=== PATIENT | male | born 2000 | race Caucasian/White ===

== ENCOUNTER 2022-02-08 12:02 | Emergency (ER) | payer OTHER, SELFPAY ==
[2022-02-08 12:28] VITALS: BP 110/70; PULSE 81; RESP 16; TEMP 36; O2SAT 98
--- NOTE | 2022-02-08 12:40 | ED.SKABFB ---
HPI - Skin/Abscess/Foreign Bdy General Chief complaint: Skin/Abscess/Foreign Body Stated complaint: HIVES Time Seen by Provider: 02/08/22 12:52 Source: patient and RN notes reviewed Mode of arrival: ambulatory Limitations: no limitations History of Present Illness HPI narrative: 21-year-old male presents to the [facility] with complaints hives to his abdomen, upper back and arms. Denies any new creams or ointments lotions or detergents. Denies any new clothes. States he started taking minocycline. Has taken Benadryl Currently blood sugar 104 Related Data Home Medications Medication Instructions Recorded Confirmed insulin aspart U-100 100 unit/mL See Rx Instructions .Route .COMPLEX 02/08/22 02/08/22 subcutaneous solution (Novolog U-100 Insulin aspart) minocycline 100 mg capsule 100 mg PO DAILY 02/08/22 02/08/22 Allergies Allergy/AdvReac Type Severity Reaction Status Date / Time No Known Allergies Allergy Verified 02/08/22 12:25 Review of Systems Review of Systems: All systems reviewed & are unremarkable except as noted in HPI and below Constitutional: Constitutional: Reports no additional constitutional complaints, Denies chills and Denies fever(s) Eyes: Eyes: Reports no additional eye complaints ENT: Reports system reviewed and no additional complaints, except as documented Cardiovascular: Cardiovascular: Reports no additional cardiovascular complaints Respiratory: Respiratory: Reports no additional respiratory complaints Gastrointestinal: Gastrointestinal: Reports no additional gastrointestinal complaints Musculoskeletal: Musculoskeletal: Reports no additional musculoskeletal complaints Integumentary/Breasts: Skin/Breast: Reports as per HPI and Reports pruritus Neurologic: Reports system reviewed and no additional complaints, except as documented Psychiatric: Psychiatric: Reports no additional psychiatric complaints Allergic/Immunologic: Allergic/Immunologic: Reports no additional allergic/immunologic complaints PMFSH Comments At the time of my signature, I reviewed and agree with the nursing past medical, surgical, social, and family history. There is no relevant family history pertinent to the patient complaint. Exam Const: General: healthy appearing, no acute distress, alert and well nourished Nutritional Appearance: well nourished Orientation/consciousness: patient oriented x3 Limitations: no limitations HENMT: Head: normal to inspection Ears: external ears normal Eyes: General: appearance normal, both eyes and all related structures Pupils: Equal, round and reactive pupils present Neck: Neck: normal visual inspection, no lymphadenopathy and no meningeal signs Chest: Chest palpation & inspection: normal inspection of the chest Resp: Effort & Inspection: normal respiratory effort and no use of accessory muscles Auscultation: clear to auscultation bilaterally, no crackles, no rales, no rhonchi and no wheezes Cardio: Rate: regular rate Rhythm: regular rhythm Skin: General skin exam: normal color Wounds: no wounds Other: Red raised hives to the upper back, lower abdomen, lower back and bilateral arms patient describes as very itchy Neuro: General: patient oriented x3, moves all extremities, no meningeal signs and no focal motor deficits Cranial nerves: Yes Equal, round and reactive pupils present Speech: normal speech Gait exam (Neuro): Normal gait present Extrem: General: normal to inspection, full ROM and capillary refill normal Psych: Appearance: grossly normal and well kempt Mental Status: mental status grossly normal Affect: normal affect Attitude: cooperative Thought content: Yes Normal thought content present Course Course Emergency Course: Discharge instructions reviewed with patient, as well as provided in writing per nursing staff. The instructions also include specific and strict return/GO TO THE ER as well as f/u information. All questions have been
== END 2022-02-08 13:13 | disposition home or self-care (01) ==
PROVIDERS: Emergency Provider Nurse Practitioner
DX: L50.9 Urticaria, unspecified (principal); E10.9 Type 1 diabetes mellitus without complications
CPT/HCPCS: 99213; G0463

== ENCOUNTER 2023-06-15 14:28 | Observation (INO) | payer OTHER, SELFPAY ==
[2023-06-15] VITALS (8 sets, daily range): BP systolic 115–147; BP diastolic 58–88; PULSE 65–89; RESP 18–23; TEMP 36.3–37; O2SAT 96–100; BMI 24.6
--- NOTE | ~2023-06-15 | XR_ITS ---
EXAMINATION: XR chest 1V portable Exam Date/Time: 06/15/2023 22:20 [employer]ER HISTORY: leukocytosis, DKA Comparison: None. RESULT: Lines, tubes, and devices: None. Lungs and pleura: Clear. Cardiomediastinal silhouette: Normal. Other: No acute osseous or upper abdominal finding. IMPRESSION: No acute cardiopulmonary process. Reviewed, dictated and finalized at location K. [employer]
[2023-06-15 14:48] LABS: Glucose Point of Care 318 mg/dl (65-105)
--- NOTE | 2023-06-15 14:51 | ED.GENADULT ---
HPI - General Adult General Chief complaint: Recheck/Abnormal Lab/Rx Stated complaint: blood sugar is high Time Seen by Provider: 06/15/23 14:43 History of Present Illness HPI narrative: 22-year-old male with history of type 1 diabetes presenting to the emergency department for evaluation of nausea vomiting and hyperglycemia. Patient states he changed his insulin pump a few days ago and states since then his blood sugars have been running high and even after giving himself boluses he has been able to get the blood sugar control. Patient states last night or this morning he began developing nausea vomiting increased body aches. Patient was initially diagnosed with diabetes and September of 2018 and that was his last time he was in DKA. Related Data Home Medications Medication Instructions Recorded Confirmed insulin aspart U-100 100 unit/mL See Rx Instructions .Route .COMPLEX 02/08/22 06/15/23 subcutaneous solution (Novolog U-100 Insulin aspart) minoxidil 2.5 mg tablet 1.25 mg DAILY 06/15/23 06/15/23 sertraline 25 mg tablet 25 mg DAILY 06/15/23 06/15/23 Allergies Allergy/AdvReac Type Severity Reaction Status Date / Time No Known Allergies Allergy Verified 06/15/23 15:26 Review of Systems Review of Systems: All systems reviewed & are unremarkable except as noted in HPI and below PMFSH Social History Social History Smoking status: Current some day smoker Tobacco type: e-cigarettes/vaping Alcohol intake: current Drinks per week: 2 Substance use: current Substance use type: marijuana Other substance usage details: gummies Do You Feel Safe in your Home?: Yes Lack of Transportation: No Lack of Food: Never True Current Housing: I Have Housing Concerned About Future Housing: No Difficulty Paying Gas/Electric Bills: No Difficulty Paying for Meds: No Currently Unemployed: No Education: Trade/Vocational Certificate Difficulty w/ Childcare or Family Care: No Spiritual care concerns: No Exam Narrative: APPEARANCE: Ill-appearing HEAD: normocephalic, atraumatic. EYES: PERRLA/EOMI, conjunctivae clear. NOSE: Normal no drainage EARS:TMS clear with good light reflex. THROAT: Pharynx clear, no exudate. NECK: Supple. No adenopathy, no masses. RESPIRATORY: Airway patent, respirations nonlabored. Clear to auscultation bilaterally, no rales, rhonchi, wheezing. CARDIOVASCULAR: Tachycardia ABDOMINAL: Soft, nontender, nondistended, normal bowel sounds MUSCULOSKELETAL: Moves all extremities. Strength/ROM intact, No edema, No calf tenderness. NEURO: Alert. Cranial nerves II through XII intact. Grossly intact SKIN: Warm, dry. Normal Color Course Course Emergency Course: Patient was admitted to the ICU for treatment of DKA Vital Signs Vital signs: Vital Signs Temperature 97.3 F L 06/15/23 14:28 Pulse Rate 87 06/15/23 14:28 Respiratory Rate 18 06/15/23 14:28 Blood Pressure 147/88 H 06/15/23 14:28 Pulse Oximetry 100 06/15/23 14:28 Temperature 98.6 F 06/15/23 18:00 Pulse Rate 84 06/15/23 18:00 Respiratory Rate 20 06/15/23 18:00 Blood Pressure 130/82 06/15/23 18:00 Pulse Oximetry 98 06/15/23 18:00 Oxygen Delivery Room Air 06/15/23 18:31 Medical Decision Making [facility] Narrative Medical decision making narrative: 22-year-old male presenting emergency department for evaluation nausea vomiting secondary to diabetic ketoacidosis. Patient's symptoms started after he had changed his insulin pump 2-3 days ago. Patient denies any infectious symptoms. Patient was afebrile but did have a leukocytosis of 16.2. Patient is stable hemoglobin of 16.1. Patient did have an anion gap of 28 with a glucose of 310. Patient was hyperglycemic upon arrival to the emergency department with a beta hydroxybutyrate of 7.5 and a pH on the VBG of 7.287. Patient was treated with IV fluids, insulin bolus and was started on insulin drip for diabetic ketoacidosis. Diana
[2023-06-15] MEDS: SODIUM CHLORIDE 0.9% IV 1,000 ML 999 ML IV CONT ×2 (15:06→15:07)
[2023-06-15] MEDS: INSULIN HUMAN REGULAR (*BKC) 100 UNITS/ML 8 UNITS IV PUSH (15:07)
[2023-06-15] MEDS: ONDANSETRON INJ 4 MG/2 ML VIAL IV PUSH ×2 (15:07→19:29)
[2023-06-15 15:08] LABS: Basophils Percent Auto 0.2 % (0.2-1.2); Hematocrit 45.8 % (42.0-52.0); Hemoglobin 16.1 g/dL (14.0-18.0); Immature Granulocyte Absolute 0.06 K/mm3 (0.00-0.031); Immature Granulocyte Percent A 0.4 % (0-0.5); Lymphocytes Absolute Auto 0.88 K/mm3 (0.9-3.2); Lymphocytes Percent Auto 5.4 % (18.3-44.2); Mean Corpuscular HGB Conc 35.2 g/dl (32-36); Mean Corpuscular Hemoglobin 31.7 pg (26-34); Mean Corpuscular Volume 90.2 fl (80-100); Mean Platelet Volume 11.2 fl (7.4-10.4); Monocytes Absolute Auto 0.4 K/mm3 (0.1-0.6); Monocytes Percent Auto 2.7 % (2.6-8.5); Neutrophils Absolute Auto 14.8 K/mm3 (1.3-6.7); Neutrophils Percent Auto 91.3 % (45.5-73.1); Platelet Count Result 276 k/mm3 (150-375); Red Blood Count 5.08 M/mm3 (4.6-6.20); Red Cell Distribution Width 12.1 % (11.5-14.5); White Blood Count 16.2 K/mm3 (4.5-10.0)
[2023-06-15 15:18] LABS: Alanine Aminotransferase 21 U/L (6-50); Albumin Level 5.3 g/dL (3.5-5.1); Alkaline Phosphatase 137 U/L (38-126); Anion Gap 28 mmol/L (8-16); Aspartate Amino Transferase 24 U/L (17-59); Bilirubin,Total 1.4 mg/dL (0.2-1.3); Blood Urea Nitrogen 16 mg/dL (9-20); Calcium 10.3 mg/dL (8.4-10.2); Carbon Dioxide 7 mmol/L (22-30); Chloride 100 mmol/L (98-107); Estimated CRCL calculation 116 ml/min; Estimated Glomerular Filt Rate > 60; Glucose 310 mg/dL (65-110); Potassium 3.8 mmol/L (3.4-5.0); Sodium 135 mmol/L (137-145)
[2023-06-15 15:23] LABS: Fractional Inspired Oxygen 21 %; PO2 VBG 43.9 mmHg (35.0-45.0); pH VBG 7.287 (7.300-7.400)
[2023-06-15 15:24] LABS: Device ROOM AIR; PCO2 VBG 23.6 mmHg (42.0-48.0)
[2023-06-15 15:26] LABS: Phosphorus 2.9 mg/dL (2.5-4.5)
[2023-06-15] MEDS: METOCLOPRAMIDE HCL INJ 10 MG/2 ML VIAL IV PUSH (15:27)
[2023-06-15 15:40] LABS: Beta-Hydroxybutyrate/Acetoacetate 7.58 mmol/L (0.02-0.27)
[2023-06-15] MEDS: INSULIN HUMAN REGULAR (*BKC) 100 UNITS in SODIUM CHLORIDE 0.9% IV 99 ML 8 UNITS IV CONT (15:56)
[2023-06-15 16:00] LABS: Glucose Point of Care 220 mg/dl (65-105)
[2023-06-15] MEDS: KCL 20 MEQ/SW 100 ML 100 ML 50 MEQ IVPB (16:14)
[2023-06-15] MEDS: DEXTROSE 5%/0.45% SOD CHL 1,000 ML 100 ML IV CONT (16:15)
[2023-06-15 16:46] LABS: Influenza A QL RT-PCR Negative (Negative); Influenza B QL RT-PCR Negative (Negative); RSV RNA, RT-PCR Negative (Negative); SARS-CoV-2 RNA PCR Negative (Negative)
--- NOTE | 2023-06-15 16:58 | PM.IMHP ---
H&P: HPI History of Present Illness Date/Time: 06/15/23 19:00 Chief Complaint: High blood sugar. Narrative: This is a 22-year-old male with type 1 diabetes mellitus who presented to the emergency department via private vehicle for evaluation of high blood sugar and with concerns for diabetic ketoacidosis. The patient provides the following history. He changed his insulin pump site 3 days ago and the following day he noticed that his blood sugars have been running high and even after giving himself boluses his glucose continues to rise. Last night he developed epigastric discomfort, nausea, and he reports having multiple episodes of nonbilious and nonbloody emesis. He is also very thirsty. He denies fever, chills, sweats, cold and flu symptoms, chest pain, pleuritic pain, shortness a breath, hematemesis, melena, and dysuria. In the ED: He was afebrile on arrival with stable blood pressures. Labs were significant for WBC count of 16.2, sodium 135, potassium 3.8, chloride 100, carbon dioxide 7, anion gap 28, BUN 16, creatinine 0.90, glucose 310, beta hydroxybutyrate 7.58. VBG showed a pH of 7.287, pCO2 23.6, HC03 11.0. He tested negative for influenza, RSV, and COVID. He has been started on insulin drip and is being admitted to the ICU in this setting for treatment of diabetic ketoacidosis. [facility] Past Medical History Medical History (Updated 06/15/23 @ 22:20 by Sharon Art PA-C) Type 1 diabetes mellitus Surgical History Surgical History (Updated 06/15/23 @ 22:18 by Sharon Art PA-C) History of tonsillectomy Family History Family History (Updated 06/15/23 @ 22:19 by Sharon Art PA-C) Other Family history non-contributory Social History Social History (Updated 06/15/23 @ 22:19 by Sharon Art PA-C) Social History: Surrogate medical decision maker: Raya Zavaleta, mother. Code status: Full code. Smoking status: Current some day smoker Tobacco type: e-cigarettes/vaping Alcohol intake: current Drinks per week: 2 Substance use: current Substance use type: marijuana Other substance usage details: gummies Do You Feel Safe in your Home?: Yes Lack of Transportation: No Lack of Food: Never True Current Housing: I Have Housing Concerned About Future Housing: No Difficulty Paying Gas/Electric Bills: No Difficulty Paying for Meds: No Currently Unemployed: No Education: Trade/Vocational Certificate Difficulty w/ Childcare or Family Care: No Spiritual care concerns: No Meds Home Medications and Allergies Home Medications Medication Instructions Recorded Confirmed Type insulin aspart U-100 100 unit/mL See Rx Instructions .Route .COMPLEX 02/08/22 06/15/23 History subcutaneous solution (Novolog U-100 Insulin aspart) minoxidil 2.5 mg tablet 1.25 mg DAILY 06/15/23 06/15/23 History sertraline 25 mg tablet 25 mg DAILY 06/15/23 06/15/23 History Allergies Allergy/AdvReac Type Severity Reaction Status Date / Time No Known Allergies Allergy Verified 06/15/23 15:26 Vital Signs Vital Signs - 24 hr 06/15/23 14:28 06/15/23 14:59 06/15/23 15:00 Temperature 97.3 F L Pulse Rate 87 65 78 Respiratory Rate 18 19 20 Blood Pressure 147/88 H Pulse Oximetry 100 Exam Narrative: General: Moderately ill-appearing male in the semi-Chiang position in bed. Weight: 77.9 kg. BMI: 24.6. HEENT: Normocephalic, atraumatic. PERRL, EOMI. Sclera anicteric. Tacky mucous membranes. Neck: Supple. Respiratory: Lungs are clear to auscultation bilaterally. Cardiovascular: Regular rate and rhythm with S1-S2. Gastrointestinal: Abdomen is soft and nondistended with positive bowel sounds. Occasional belching. Mild tenderness to palpation over the epigastric region. No guarding or rebound tenderness. Skin: Warm and dry. Extremities: No cyanosis, clubbing, or edema. Radial and pedal pulses intact. Neurological: Alert. Cranial nerves 2-12 are grossly intact.
[2023-06-15 17:01] LABS: Glucose Point of Care 194 mg/dl (65-105)
[2023-06-15 18:01] LABS: Glucose Point of Care 144 mg/dl (65-105)
[2023-06-15 19:02] LABS: Glucose Point of Care 137 mg/dl (65-105)
[2023-06-15] MEDS: DEXTROSE 5%/0.45% SOD CHL 1,000 ML 150 ML IV CONT (19:17)
[2023-06-15 19:33] LABS: Glucose Point of Care 154 mg/dl (65-105)
[2023-06-15] MEDS: PANTOPRAZOLE SODIUM IV 40 MG VIAL IV PUSH (19:40)
[2023-06-15] MEDS: KCL 20 MEQ/D5/0.45% SOD CHL 1,000 ML 150 ML IV CONT (19:47)
[2023-06-15 20:00] LABS: Anion Gap 19 mmol/L (8-16); Blood Urea Nitrogen 12 mg/dL (9-20); Calcium 9.3 mg/dL (8.4-10.2); Carbon Dioxide 9 mmol/L (22-30); Chloride 108 mmol/L (98-107); Estimated CRCL calculation 129 ml/min; Estimated Glomerular Filt Rate > 60; Glucose 154 mg/dL (65-110); Potassium 4.2 mmol/L (3.4-5.0); Sodium 136 mmol/L (137-145)
[2023-06-15 20:08] LABS: MRSA (PCR) NOT DETECTED (NOT DETECTE)
[2023-06-15 21:13] LABS: Glucose Point of Care 188 mg/dl (65-105)
[2023-06-15 22:13] LABS: Glucose Point of Care 174 mg/dl (65-105)
[2023-06-15 23:25] LABS: Glucose Point of Care 172 mg/dl (65-105)
[2023-06-16] VITALS (7 sets, daily range): BP systolic 104–127; BP diastolic 52–69; PULSE 47–78; RESP 18–20; TEMP 36.3–37; O2SAT 97–99; BMI 24.6
[2023-06-16 00:13] LABS: Anion Gap 14 mmol/L (8-16); Blood Urea Nitrogen 10 mg/dL (9-20); Calcium 9.1 mg/dL (8.4-10.2); Carbon Dioxide 13 mmol/L (22-30); Chloride 107 mmol/L (98-107); Estimated CRCL calculation 129 ml/min; Estimated Glomerular Filt Rate > 60; Glucose 182 mg/dL (65-110); Sodium 134 mmol/L (137-145)
[2023-06-16 00:18] LABS: Glucose Point of Care 176 mg/dl (65-105)
[2023-06-16 01:27] LABS: Glucose Point of Care 194 mg/dl (65-105)
[2023-06-16 03:24] LABS: Glucose Point of Care 185 mg/dl (65-105)
[2023-06-16 04:00] LABS: Hematocrit 38.9 % (42.0-52.0); Hemoglobin 13.5 g/dL (14.0-18.0); Mean Corpuscular HGB Conc 34.7 g/dl (32-36); Mean Corpuscular Hemoglobin 31.4 pg (26-34); Mean Corpuscular Volume 90.5 fl (80-100); Mean Platelet Volume 10.8 fl (7.4-10.4); Platelet Count Result 232 k/mm3 (150-375); Red Cell Distribution Width 12.5 % (11.5-14.5); White Blood Count 11.4 K/mm3 (4.5-10.0)
[2023-06-16 04:19] LABS: Alanine Aminotransferase 14 U/L (6-50); Alkaline Phosphatase 86 U/L (38-126); Anion Gap 10 mmol/L (8-16); Aspartate Amino Transferase 20 U/L (17-59); Bilirubin,Total 0.9 mg/dL (0.2-1.3); Blood Urea Nitrogen 9 mg/dL (9-20); Calcium 9.1 mg/dL (8.4-10.2); Carbon Dioxide 17 mmol/L (22-30); Chloride 108 mmol/L (98-107); Estimated CRCL calculation 129 ml/min; Estimated Glomerular Filt Rate > 60; Glucose 186 mg/dL (65-110); Potassium 3.8 mmol/L (3.4-5.0); Sodium 135 mmol/L (137-145)
[2023-06-16 05:13] LABS: Glucose Point of Care 145 mg/dl (65-105)
[2023-06-16] MEDS: KCL 20 MEQ/D5/0.45% SOD CHL 1,000 ML 150 ML IV CONT (05:30)
[2023-06-16 06:12] LABS: Glucose Point of Care 152 mg/dl (65-105)
[2023-06-16 07:23] LABS: Anion Gap 9 mmol/L (8-16); Blood Urea Nitrogen 8 mg/dL (9-20); Carbon Dioxide 18 mmol/L (22-30); Chloride 108 mmol/L (98-107); Estimated CRCL calculation 146 ml/min; Estimated Glomerular Filt Rate > 60; Glucose 140 mg/dL (65-110); Potassium 3.7 mmol/L (3.4-5.0); Sodium 135 mmol/L (137-145)
--- NOTE | 2023-06-16 08:06 | WPDCNINT ---
Assessment and Plan Assessment and plan (1) Diabetic ketoacidosis associated with type 1 diabetes mellitus: Code(s): E10.10 - Type 1 diabetes mellitus with ketoacidosis without coma Status: Acute Assessment and Plan: Patient was given iVF bolus and started on infusion Patient was started on insulin infusion and Q1H glucose monitoring Serial labs were done Patient's anion gap has now closed symptoms have resolved I will transition patient back to his insulin pump this morning. I have discussed with the patient and he wants to go back to the insulin pump rather than transition to subcutaneous insulin and then go back on pump. He was set up his pump at usual rate of 0.8 units/hour +calculate his with meal does based on his meals and notified nurse of how much insulin he is taking. Will continue with sugar monitoring with sliding scale and treat preprandial hyperglycemia as per hospital protocol. Patient will be monitored for next 24 hours to ensure that his blood sugars are adequately controlled on the current insulin does through the pump. Depending on his blood sugars his pump may need to be adjusted. Discontinue IV fluids and insulin infusion once pump is initiated Dietitian and diabetic counselor consultation (2) Dehydration: Code(s): E86.0 - Dehydration Status: Acute Assessment and Plan: Resolved with IV fluids (3) Leukocytosis: Code(s): D72.829 - Elevated white blood cell count, unspecified Status: Acute Assessment and Plan: Likely secondary to SIRS. No symptoms or objective evidence of infection at this time PCR for influenza RSV and COVID were negative Nasal MRSA screen was negative WBC has almost normalized Plan DVT prophylaxis -currently on Lovenox Stress ulcer prophylaxis -currently on Protonix Nutrition -diabetic diet Code Status - Full Code Transfer out of ICU today Insights Manager Consult Note Consult date: 06/16/23 Reason for consult: DKA HPI: Lee Zavaleta is a 22 year old male with type 1 diabetes mellitus who presented to the emergency department yesterday for evaluation of high blood sugar and with concerns for diabetic ketoacidosis. The patient mentioned that he changed his insulin pump site 3 days ago and the following day he noticed that his blood sugars have been running high and even after giving himself boluses his glucose continues to rise. On Thursday he developed epigastric discomfort, nausea, and he reports having multiple episodes of nonbilious and nonbloody emesis. He was also very thirsty. He denied fever, chills, sweats, cold and flu symptoms, chest pain, pleuritic pain, shortness a breath, hematemesis, melena, and dysuria. All other systems were reviewed and were negative In the ED: He was afebrile on arrival with stable blood pressures. Labs were significant for WBC count of 16.2, sodium 135, potassium 3.8, chloride 100, carbon dioxide 7, anion gap 28, BUN 16, creatinine 0.90, glucose 310, beta hydroxybutyrate 7.58. VBG showed a pH of 7.287, pCO2 23.6, HC03 11.0. He tested negative for influenza, RSV, and COVID. He has been started on insulin drip and was admitted to the ICU in this setting for treatment of diabetic ketoacidosis. This morning patient states he is feeling much better and denies any complaints. He states that his symptoms have completely resolved and he is hungry and would like to eat food. He states that his insulin pump set at 0.8 units/hour as a basal rate +he gave himself sliding scale based what he eats. He does have his insulin pump with him. Again all other systems were reviewed and were negative. Review of Systems Review of Systems: All systems reviewed & are unremarkable except as noted in HPI and below (HPI) [facility] Past Medical History Medical History (Updated 06/15/23 @ 22:20 by Sharon Art PA-C) Type 1 diabetes mellitus Surgical History Surgical History (Updated 06/15/23 @ 22:18 by Sharon Art PA-C)
[2023-06-16 08:20] LABS: Glucose Point of Care 174 mg/dl (65-105)
[2023-06-16 09:08] LABS: Appearance Urine Clear (Clear); Bacteria Urine None Seen /hpf; Bilirubin Urine Negative (Negative); Blood Urine Negative (Negative); Color Urine Yellow (Yellow); Glucose Urine UA 2+ mg/dL (Negative); Ketones Urine 4+ mg/dL (Negative); Leukocyte Esterase Ur Negative LEU/UL (Negative); Nitrate Urine Negative (Negative); Non Pathogenic Casts 0-2; Protein Urine 1+ mg/dL (Negative); RBC Urine 0-2 /hpf (0-2); Specific Grav Ur 1.029 (1.001-1.035); Squamous Epithelial Cell Urine None seen /hpf (Few); Urobilinogen Urine 0.2 mg/dL (<2.0); WBC Urine 0-5 /hpf
[2023-06-16] MEDS: POTASSIUM CHLORIDE 20 MEQ ER TABLET 40 MEQ PO (09:11)
[2023-06-16] MEDS: SERTRALINE HCL 25 MG TABLET BY MOUTH (09:11)
[2023-06-16] MEDS: PANTOPRAZOLE SODIUM IV 40 MG VIAL IV PUSH ×2 (09:11→20:39)
[2023-06-16] MEDS: ENOXAPARIN 40 MG/0.4 ML SYRINGE SUB-Q (09:11)
[2023-06-16 09:13] LABS: Add Urine Microscopic? YES
[2023-06-16] MEDS: minoxidiL 2.5 MG TABLET 1.25 MG BY MOUTH (09:33)
[2023-06-16 10:26] LABS: Hemoglobin A1C 8.1 % (<5.7)
--- NOTE | 2023-06-16 10:45 | PC.NURSE ---
Patient started on home insulin pump at 0814 this morning. Basal rate is 0.8 units an hour. Patient's blood sugar was 174 so he bolused 1.8 units. This covers his breakfast meal, no additional sliding scale needed. Dr. Stephanie young.
--- NOTE | 2023-06-16 11:46 | PC.NURSE ---
This patient, Lee Zavaleta, was transferred to [facility] on 06/16/23 at 1146. Personal belongings sent with patient. Report given to [ Adalid FRENCH]. Appropriate documentation sent with patient.
--- NOTE | 2023-06-16 12:02 | PC.NURSE ---
This patient, Lee Zavaleta, was received from ICU on 06/16/23 at 1146. Patient/family oriented to unit policies and routines. Report taken from Desi Roy RN
[2023-06-16 12:05] LABS: Glucose Point of Care 204 mg/dl (65-105)
--- NOTE | 2023-06-16 13:27 | PC.NURSE ---
RN Spoke with Dr Lizama in regards to insulin pump, lunch meal intake, and insulin pump. Dr Lizama stated to HOLD 1200 sliding scale insulin scheduled depsite blood sugar reading. Will recheck sugar before dinner.
[2023-06-16 17:35] LABS: Glucose Point of Care 282 mg/dl (65-105)
[2023-06-16] MEDS: INSULIN ASPART (*BKC) 100 UNITS/ML SUB-Q (18:09)
[2023-06-17 04:06] LABS: Glucose Point of Care 169 mg/dl (65-105)
[2023-06-17 05:44] LABS: Hemoglobin 13.7 g/dL (14.0-18.0); Mean Corpuscular HGB Conc 35.1 g/dl (32-36); Mean Corpuscular Hemoglobin 31.9 pg (26-34); Mean Corpuscular Volume 90.7 fl (80-100); Platelet Count Result 210 k/mm3 (150-375); Red Cell Distribution Width 12.5 % (11.5-14.5); White Blood Count 6.9 K/mm3 (4.5-10.0)
[2023-06-17 05:56] LABS: Anion Gap 6 mmol/L (8-16); Blood Urea Nitrogen 8 mg/dL (9-20); Calcium 9.3 mg/dL (8.4-10.2); Carbon Dioxide 27 mmol/L (22-30); Chloride 106 mmol/L (98-107); Estimated CRCL calculation 129 ml/min; Estimated Glomerular Filt Rate > 60; Glucose 170 mg/dL (65-110); Magnesium 1.8 mg/dL (1.6-2.3); Potassium 3.9 mmol/L (3.4-5.0); Sodium 139 mmol/L (137-145)
[2023-06-17 06:00] VITALS: BP 112/71; PULSE 67; RESP 20; TEMP 36.6; O2SAT 99
[2023-06-17 08:43] VITALS: O2SAT 99
[2023-06-17] MEDS: minoxidiL 2.5 MG TABLET 1.25 MG BY MOUTH (09:04)
[2023-06-17] MEDS: ENOXAPARIN 40 MG/0.4 ML SYRINGE SUB-Q (09:04)
[2023-06-17] MEDS: SERTRALINE HCL 25 MG TABLET BY MOUTH (09:04)
[2023-06-17] MEDS: PANTOPRAZOLE SODIUM IV 40 MG VIAL IV PUSH (09:05)
--- NOTE | 2023-06-17 10:15 | PM.DS ---
DS: Admitting Diagnosis Discharge Date 06/17/23 Admitting Diagnosis dka DS: Discharge Diagnosis Discharge Diagnosis (1) Diabetic ketoacidosis associated with type 1 diabetes mellitus: Code(s): E10.10 - Type 1 diabetes mellitus with ketoacidosis without coma Status: Acute Assessment and Plan: Patient was given iVF bolus and started on infusion Patient was started on insulin infusion and Q1H glucose monitoring Serial labs were done Patient's anion gap has now closed symptoms have resolved I will transition patient back to his insulin pump this morning. I have discussed with the patient and he wants to go back to the insulin pump rather than transition to subcutaneous insulin and then go back on pump. He was set up his pump at usual rate of 0.8 units/hour +calculate his with meal does based on his meals and notified nurse of how much insulin he is taking. Will continue with sugar monitoring with sliding scale and treat preprandial hyperglycemia as per hospital protocol. Patient will be monitored for next 24 hours to ensure that his blood sugars are adequately controlled on the current insulin does through the pump. Depending on his blood sugars his pump may need to be adjusted. Discontinue IV fluids and insulin infusion once pump is initiated Dietitian and diabetic counselor consultation (2) Dehydration: Code(s): E86.0 - Dehydration Status: Acute Assessment and Plan: Resolved with IV fluids (3) Leukocytosis: Code(s): D72.829 - Elevated white blood cell count, unspecified Status: Acute Assessment and Plan: Likely secondary to SIRS. No symptoms or objective evidence of infection at this time PCR for influenza RSV and COVID were negative Nasal MRSA screen was negative WBC has almost normalized Plan DVT prophylaxis -currently on Lovenox Stress ulcer prophylaxis -currently on Protonix Nutrition -diabetic diet Code Status - Full Code Transfer out of ICU today DS: Summary Hospital Course Hospital Course: 22-year-old male with type 1 diabetes mellitus who presented to the emergency department via private vehicle for evaluation of high blood sugar and with concerns for diabetic ketoacidosis. Labs were significant for WBC count of 16.2, sodium 135, potassium 3.8, chloride 100, carbon dioxide 7, anion gap 28, BUN 16, creatinine 0.90, glucose 310, beta hydroxybutyrate 7.58. VBG showed a pH of 7.287, pCO2 23.6, HC03 11.0. He tested negative for influenza, RSV, and COVID. He has been started on insulin drip and was admitted to the ICU in this setting for treatment of diabetic ketoacidosis. Patient's anion gap has now closed symptoms have resolved I will transition patient back to his insulin pump this morning.? I have discussed with the patient and he wants to go back to the insulin pump rather than transition to subcutaneous insulin and then go back on pump.? He was set up his pump at usual rate of 0.8 units/hour +calculate his with meal does based on his meals and notified nurse of how much insulin he is taking.? Will continue with sugar monitoring with sliding scale and treat preprandial hyperglycemia as per hospital protocol. Patient will be monitored for next 24 hours to ensure that his blood sugars are adequately controlled on the current insulin does through the pump.? Depending on his blood sugars his pump may need to be adjusted. Discontinue IV fluids and insulin infusion once pump is initiated Dietitian and diabetic counselor consultation Patient was discharged in stable condition with close outpatient follow-up. Please see above and med rec for details. All symptoms resolved and patient was eager to go his insulin pump with follow-up by a outpatient endocrinology. Time Spent with Patient Time attestation: Total time spent providing and/or coordinating discharge services: Exam Narrative: General: Pt is alert awake and in NAD Lungs/Chest: Trachea central Clear BS B/L, No crackle
[2023-06-17 12:26] LABS: Glucose Point of Care 194 mg/dl (65-105)
[2023-06-17 12:28] LABS: Glucose Point of Care 179 mg/dl (65-105)
== END 2023-06-17 15:18 | disposition home or self-care (01) ==
LOC: ANHED 15:02 → ANHICU 19:00 → ANH3MED 06-16 13:26 → ANHICU 06-18 09:01
PROVIDERS: General Practice; Internal Medicine; Physician Assistant; Admitting Provider Family Medicine; Emergency Provider Emergency Medicine; Visit Provider Student in an Organized Health Care Education/Training Program
DX: E10.10 Type 1 diabetes mellitus with ketoacidosis without coma (principal); Z96.41 Presence of insulin pump (external) (internal); E86.0 Dehydration; D72.829 Elevated white blood cell count, unspecified; F17.290 Nicotine dependence, other tobacco product, uncomplicated; F12.90 Cannabis use, unspecified, uncomplicated; F10.90 Alcohol use, unspecified, uncomplicated; Z79.4 Long term (current) use of insulin; Z79.899 Other long term (current) drug therapy
CPT/HCPCS: 36415; 71045; 80048; 80053; 81001; 82010; 82803; 82948; 83036; 83735; 84100; 85025; 85027; 87637; 87641; 96361; 96365; 96366; 96368; 96372; 96374; 96375; 96376; 99285; A9270; C9113; G0378; J1650; J1815; J2405; J2765; J3480; J7030